=== PATIENT | female | born 1975 ===

== ENCOUNTER 2018-06-20 11:19 | Emergency (ER) | payer OTHER ==
[2018-06-20 11:39] VITALS: RESP 18; TEMP 98.9
[2018-06-20] MEDS ORDERED: Bacitracin 500 Units/gm Oint Foilpak UD TOP STA (11:52)
[2018-06-20] MEDS ORDERED: Oxycodone/Acetaminophen 5/325 mg Tab PO STA (11:52)
[2018-06-20] MEDS ORDERED: Tetanus/Diphtheria Toxoids 0.5 ml Syringe IM ONE ×2 (11:53→12:35)
[2018-06-20] MEDS ORDERED: Rabies Immune Globulin 1500 Unit/5ml Vial IM ONE (11:53)
[2018-06-20] MEDS ORDERED: Amoxicillin-Clav 875-125 mg Tab PO STA (11:59)
[2018-06-20] MEDS ORDERED: Amoxicillin-Clav 875-125 mg Tab PO ONE (12:34)
[2018-06-20] MEDS ORDERED: Bacitracin 500 Units/gm Oint Foilpak UD ONE ×2 (12:34→14:39)
[2018-06-20] MEDS ORDERED: Oxycodone/Acetaminophen 5/325 mg Tab ONE (12:34)
[2018-06-20] MEDS ORDERED: Lidocaine 2% MPF (5 ml) Inj ONE (14:01)
--- NOTE | 2018-06-20 14:23 | C.PDOC ---
History Of Present Illness 43 year old female presents to the emergency department status-post being attacked by a cat. Patient states that she was walking on the street when she saw a stray cat and began to offer it some bread. When she leaned towards the cat, she was viciously mauled by the cat. She reports sticking her arms up to protect her face and head but sustained numerous lacerations on her face, arms, and superior skull. She states she is unsure if she was bitten. Chief Complaint (Nursing): Bite History Per: Patient History/Exam Limitations: no limitations Onset/Duration Of Symptoms: Hrs Current Symptoms Are (Timing): Still Present Location Of Injury: Right: Arm, Left: Arm, Anterior: Face, Head Quality Of Symptoms: Painful, Draining, Other (laceration) - Animal Bite Description Of The Attack: Approached Animal Description Of The Animal: Stray Reports Animal's Immunization Status: Unknown Past Medical History Reviewed: Historical Data, Nursing Documentation, Vital Signs Vital Signs: Last Vital Signs Temp 98.9 F 06/20/18 14:37 Pulse 60 06/20/18 14:37 Resp 18 06/20/18 14:37 BP 143/79 06/20/18 14:37 Pulse Ox 98 06/20/18 20:17 - Medical History PMH: No Chronic Diseases Surgical History: Cholecystectomy Family History: States: No Known Family Hx - Social History Hx Alcohol Use: No Hx Substance Use: No Review Of Systems Except As Marked, All Systems Reviewed And Found Negative. Skin: Positive for: Other (multiple lacerations) Neurological: Negative for: Weakness, Numbness Physical Exam - Physical Exam Appears: Non-toxic, No Acute Distress Skin: Warm, Dry, Other (numerous scratches, superficial lacerations and pancture wounds on patient's forearms and lower legs b/l) Head: Laceration (2.5cm flap laceration present to the left evangelical, three lacerations present on superior skull) Eye(s): bilateral: Normal Inspection, PERRL, EOMI Neck: Normal, Supple Chest: Symmetrical, No Tenderness Cardiovascular: Rhythm Regular, No Murmur Respiratory: No Rales, No Rhonchi, No Wheezing Extremity: Normal ROM, Other (laceration to the left foot) Neurological/Psych: Oriented x3, Normal Speech, Normal Cognition ED Course And Treatment O2 Sat by Pulse Oximetry: 98 Progress Note: Td IM, Augmentin po, Percocet po. Laceration - Laceration Repair Left Bahai Wound Length (In cm): 2.5cm Description Of Wound: Linear (flap) Wound Cleansed With: Betadine, Sterile Saline Anesthesia: Lidocaine 1% Wound Examination: Irrigated With Saline, No FB With Wound Exploration Wound Closure: Suture (3 ) Suture Technique And Material Used: Interrupted, Nylon (5-0) Wound Complexity: Simple Head Wound Length (In cm): 4cm Description Of Wound: Linear Anesthesia: Lidocaine 1% Wound Examination: Irrigated With Saline Wound Closure: Five Points (4) Wound Complexity: Simple Head 2 Wound Length (In cm): 1cm Description Of Wound: Linear Anesthesia: Lidocaine 1% Wound Closure: Five Points (1) Wound Complexity: Simple Head 3 Wound Length (In cm): 1cm Description Of Wound: Linear Anesthesia: Lidocaine 1% Wound Closure: Five Points (1) Wound Complexity: Simple Disposition - Disposition Disposition: HOME/ ROUTINE Disposition Time: 14:18 Condition: STABLE Additional Instructions: Follow up with your PMD/clinic within 2-3 days. Return to ED in 1 week for suture / staple removal. Return to ED immediately if you develop any signs of wound infection. Come back to ED for Rabies vaccination on 06/23/18, 06/27/18 and 07/04/18. Prescriptions: Amoxicillin/Clavulanate [Augmentin 875 MG-125 MG] 1 tab PO BID #14 tab Mupirocin 2% Ointment [Bactroban Ointment] 1 appl TP BID #1 tube Ibuprofen [Motrin Tab] 600 mg PO Q8 #30 tab Instructions: Animal Bites (DC), Wound Care (DC), Laceration Repair With Yuki (DC), Laceration Repair With Stitches (DC) Forms: [employer] (Occitan) Print Language: MALAY - Clinical Impression Clinical Impression: Animal bite wound, Abrasions of multiple sites, Scratched by cat, Lacerations of multiple sites without complication - PA / EDUCATION CONSULTANT / Resident Statement MD/DO has reviewed & agrees with the documentation as recorded. - Scribe Statement The provider has reviewed the documentation as recorded by the Scribe (Sandeep Carter) All medical record entries made by the Scribe were at my direction and personally dictated by me. I have reviewed the chart and agree that the record accurately reflects my personal performance of the history, physical exam, medical decision making, and the department course for this patient. I have also personally directed, reviewed, and agree with the discharge instructions and disposition.
[2018-06-20 14:39] VITALS: BP 143/79; PULSE 60
[2018-06-20 19:54] VITALS: O2SAT 98
== END 2018-06-20 14:49 | disposition home or self-care (01) ==
LOC: C.ER 11:19
DX: S01.81XA Laceration without foreign body of other part of head, initial encounter (principal); S91.312A Laceration without foreign body, left foot, initial encounter; S51.832A Puncture wound without foreign body of left forearm, initial encounter; S51.831A Puncture wound without foreign body of right forearm, initial encounter; S81.832A Puncture wound without foreign body, left lower leg, initial encounter; S81.831A Puncture wound without foreign body, right lower leg, initial encounter; W55.01XA Bitten by cat, initial encounter

== ENCOUNTER 2018-06-23 09:06 | Emergency (ER) | payer OTHER ==
[2018-06-23 09:11] VITALS: BP 130/81; PULSE 58; RESP 16; TEMP 98.5; O2SAT 98
--- NOTE | 2018-06-23 09:25 | C.PDOC ---
History Of Present Illness 43 y/o female presents to ED for 2nd rabies vaccine and for wound check. Patient was previously seen at ED after being attacked by cat, sutures placed to right side of face and shelli to scalp area. Patient denies drainage, fever new injury or any other complaints at this time. Time Seen by Provider: 06/23/18 09:16 Chief Complaint (Nursing): Medical Clearance History Per: Patient History/Exam Limitations: no limitations Onset/Duration Of Symptoms: Days Current Symptoms Are (Timing): Still Present Past Medical History Reviewed: Historical Data, Nursing Documentation, Vital Signs Vital Signs: Last Vital Signs Temp 98.5 F 06/23/18 09:09 Pulse 58 L 06/23/18 09:09 Resp 16 06/23/18 09:09 BP 130/81 06/23/18 09:09 Pulse Ox 98 06/23/18 09:27 - Medical History PMH: No Chronic Diseases Surgical History: Cholecystectomy Family History: States: No Known Family Hx - Social History Hx Alcohol Use: No Hx Substance Use: No - Immunization History Hx Tetanus Toxoid Vaccination: Yes Hx Influenza Vaccination: No Hx Pneumococcal Vaccination: No Review Of Systems Except As Marked, All Systems Reviewed And Found Negative. Skin: Positive for: Other (wound check) Physical Exam - Physical Exam Appears: Non-toxic, No Acute Distress Skin: Warm, Dry, No Rash Head: No Tenderness, No Swelling, Laceration (healing to right side of face and scalp area) Eye(s): bilateral: PERRL, EOMI Oral Mucosa: Moist Cardiovascular: Rhythm Regular Respiratory: Normal Breath Sounds, No Rales, No Rhonchi, No Wheezing Gastrointestinal/Abdominal: Soft, No Tenderness, No Guarding, No Rebound Extremity: Normal ROM, Capillary Refill (<2 seconds), No Deformity, Other ( multiple abrasions to extremities no signs of infection ) Neurological/Psych: Oriented x3, Normal Speech, Normal Motor, Normal Sensation ED Course And Treatment O2 Sat by Pulse Oximetry: 98 (RA) Pulse Ox Interpretation: Normal Medical Decision Making Medical Decision Making: Assessment: Wound check and 2nd rabies vaccine Disposition Counseled Patient/Family Regarding: Diagnosis, Need For Followup - Disposition Disposition: HOME/ ROUTINE Disposition Time: 09:22 Condition: STABLE Additional Instructions: suture removal from face in 2 days scalp staple removal in 7 days next rabies vaccine on 06/27/18 return to ER sooner if symptoms worsens or progress Instructions: Rabies Vaccine Forms: Gen Discharge Inst Indian, [facility] (Indian) Print Language: [place] HEL[place] - Clinical Impression Clinical Impression: Rabies, Visit for wound check - Scribe Statement The provider has reviewed the documentation as recorded by the Christianeibmaría elena Boudreaux All medical record entries made by the Christaineibe were at my direction and personally dictated by me. I have reviewed the chart and agree that the record accurately reflects my personal performance of the history, physical exam, medical decision making, and the department course for this patient. I have also personally directed, reviewed, and agree with the discharge instructions and disposition.
== END 2018-06-23 09:46 | disposition home or self-care (01) ==
LOC: C.ER 09:06
DX: Z23 Encounter for immunization (principal)

== ENCOUNTER 2018-06-25 12:13 | Emergency (ER) | payer OTHER ==
[2018-06-25 12:40] VITALS: BP 134/82; PULSE 65; RESP 18; TEMP 98.3; O2SAT 100
--- NOTE | 2018-06-25 13:07 | C.PDOC ---
History Of Present Illness FOR FACIAL SUTURE REMOVAL. PS HEALING WELL. EXAM SKIN [address] L FOREHEAD, NO INFXN PROC 3 SUTURES REMOVED W 11 BLADE WO DIFF. PT TOLERATED WELL Time Seen by Provider: 06/25/18 12:40 Chief Complaint (Nursing): Suture/Staple Removal History Per: Patient History/Exam Limitations: no limitations Past Medical History Reviewed: Historical Data, Nursing Documentation, Vital Signs Vital Signs: Last Vital Signs Temp 98.3 F 06/25/18 12:37 Pulse 65 06/25/18 12:37 Resp 18 06/25/18 12:37 BP 134/82 06/25/18 12:37 Pulse Ox 100 06/25/18 13:07 - Medical History PMH: No Chronic Diseases Surgical History: Cholecystectomy Family History: States: No Known Family Hx - Social History Hx Alcohol Use: No Hx Substance Use: No - Immunization History Hx Tetanus Toxoid Vaccination: Yes Hx Influenza Vaccination: No Hx Pneumococcal Vaccination: No Review Of Systems Except As Marked, All Systems Reviewed And Found Negative. Physical Exam - Physical Exam Appears: Non-toxic, No Acute Distress Skin: Normal Color, Warm, Dry, Other (left forehead: [address], no infection) Head: Atraumatic, Normacephalic Eye(s): bilateral: Normal Inspection Respiratory: Other (NARD) Neurological/Psych: Oriented x3, Normal Speech ED Course And Treatment O2 Sat by Pulse Oximetry: 100 (RA) Pulse Ox Interpretation: Normal Medical Decision Making Medical Decision Making: PROC 3 SUTURES REMOVED W 11 BLADE WO DIFF. PT TOLERATED WELL Disposition Counseled Patient/Family Regarding: Diagnosis, Need For Followup - Disposition Referrals: [facility] [Outside] [facility] [Outside] Disposition: HOME/ ROUTINE Disposition Time: 13:07 Condition: IMPROVED Additional Instructions: RETURN DIRECTED Instructions: Stitches Removal Forms: [facility] [facility] (Equatorial Guinean) Print Language: NEPALESE - Clinical Impression Clinical Impression: Removal of suture - Scribe Statement The provider has reviewed the documentation as recorded by the Ariel Caban Provider Attestation: All medical record entries made by the Christianeibe were at my direction and personally dictated by me. I have reviewed the chart and agree that the record accurately reflects my personal performance of the history, physical exam, medical decision making, and the department course for this patient. I have also personally directed, reviewed, and agree with the discharge instructions and disposition.
== END 2018-06-25 13:15 | disposition home or self-care (01) ==
LOC: C.ER 12:13
DX: Z48.02 Encounter for removal of sutures (principal)

== ENCOUNTER 2018-06-27 08:50 | Emergency (ER) | payer OTHER ==
[2018-06-27 09:01] VITALS: BMI 31.2
[2018-06-27 09:02] VITALS: BP 131/76; PULSE 62; RESP 17; TEMP 98.7; O2SAT 99
--- NOTE | 2018-06-27 09:12 | C.PDOC ---
History Of Present Illness 43 year old female presents to the emergency department for her 3rd rabies shot in the series. Patient was attacked by a stray cat on 06/20/18, and was given rabies vaccines on that same day and on 06/23/18. She states she is currently feeling better, denies pain, fever, discharge, etc. Time Seen by Provider: 06/27/18 09:02 Chief Complaint (Nursing): Rabies Vaccine Series History Per: Patient History/Exam Limitations: no limitations Onset/Duration Of Symptoms: Days Current Symptoms Are (Timing): Better Past Medical History Reviewed: Historical Data, Nursing Documentation, Vital Signs Vital Signs: Last Vital Signs Temp 98.7 F 06/27/18 09:03 Pulse 62 06/27/18 09:03 Resp 17 06/27/18 09:03 BP 131/76 06/27/18 09:03 Pulse Ox 99 06/27/18 10:34 - Medical History PMH: No Chronic Diseases Surgical History: Cholecystectomy Family History: States: No Known Family Hx - Social History Hx Alcohol Use: No Hx Substance Use: No - Immunization History Hx Tetanus Toxoid Vaccination: Yes (06/2018) Hx Influenza Vaccination: No Hx Pneumococcal Vaccination: No Review Of Systems Constitutional: Negative for: Fever Cardiovascular: Negative for: Chest Pain Respiratory: Negative for: Shortness of Breath Gastrointestinal: Negative for: Nausea, Vomiting Skin: Negative for: Rash Neurological: Negative for: Weakness, Numbness Physical Exam - Physical Exam Appears: Well, Non-toxic, No Acute Distress Skin: Warm, Dry, Other (Well healing abrasions on bilateral arms and on left upper cheek) Head: Normacephalic, Other (Superior aspect of scalp has intact shelli) Eye(s): bilateral: Normal Inspection Oral Mucosa: Moist Neck: Supple Cardiovascular: Rhythm Regular Respiratory: Normal Breath Sounds, No Rales, No Rhonchi, No Wheezing Neurological/Psych: Oriented x3 ED Course And Treatment O2 Sat by Pulse Oximetry: 99 (RA) Pulse Ox Interpretation: Normal Progress Note: Patient given third rabies shot in the series. Patient is is resting comfortably, and is in no acute distress. She was instructed to return to the ER on 07/04/18 for the last rabies shot, or to return sooner if she has any concerning symptoms. Disposition Counseled Patient/Family Regarding: Diagnosis, Need For Followup - Disposition Referrals: [facility] [Outside] Disposition: HOME/ ROUTINE Disposition Time: 09:30 Condition: STABLE Instructions: Rabies Vaccine Forms: [facility] (Gambian), General Discharge Instructions Print Language: BELARUSIAN - Clinical Impression Clinical Impression: Rabies vaccination - Scribe Statement The provider has reviewed the documentation as recorded by the Christianeibe Freda Bobby Provider Attestation: All medical record entries made by the Christianeibe were at my direction and personally dictated by me. I have reviewed the chart and agree that the record accurately reflects my personal performance of the history, physical exam, medical decision making, and the department course for this patient. I have also personally directed, reviewed, and agree with the discharge instructions and disposition.
== END 2018-06-27 09:38 | disposition home or self-care (01) ==
LOC: C.ER 08:50
DX: Z23 Encounter for immunization (principal)

== ENCOUNTER 2018-07-01 14:32 | Emergency (ER) | payer OTHER ==
[2018-07-01 14:33] VITALS: BMI 31.2
[2018-07-01 14:36] VITALS: BP 143/78; PULSE 66; RESP 18; TEMP 99; O2SAT 100
--- NOTE | 2018-07-01 16:23 | C.PDOC ---
History Of Present Illness 43 y/o female presents to the ED for staple removal. The (6) sutures were placed 1 week ago on scalp. The patient offers no medical complaints at this time. She states the healing process of the sutures went well. Time Seen by Provider: 07/01/18 14:37 Chief Complaint (Nursing): Suture/Staple Removal History Per: Patient History/Exam Limitations: no limitations Location Of Injury: Right: Head, Left: Head Recent travel outside of the [place]: No Past Medical History Reviewed: Historical Data, Nursing Documentation, Vital Signs Vital Signs: Last Vital Signs Temp 99 F 07/01/18 14:34 Pulse 66 07/01/18 14:34 Resp 18 07/01/18 14:34 BP 143/78 07/01/18 14:34 Pulse Ox 100 07/01/18 16:24 - Medical History PMH: No Chronic Diseases Surgical History: Cholecystectomy Family History: States: Unknown Family Hx - Social History Hx Alcohol Use: No Hx Substance Use: No - Immunization History Hx Tetanus Toxoid Vaccination: Yes (06/2018) Hx Influenza Vaccination: No Hx Pneumococcal Vaccination: No Review Of Systems Except As Marked, All Systems Reviewed And Found Negative. Constitutional: Negative for: Fever Musculoskeletal: Negative for: Other (head pain) Physical Exam - Physical Exam Appears: Well, Non-toxic, No Acute Distress Skin: Normal Color, Warm, Dry Head: Atraumatic, Normacephalic Eye(s): bilateral: PERRL, EOMI Ear(s): Bilateral: Normal Oral Mucosa: Moist Neck: Normal, Supple Chest: Symmetrical Cardiovascular: Rhythm Regular, No Murmur Respiratory: Normal Breath Sounds, No Rales, No Rhonchi, No Wheezing Neurological/Psych: Oriented x3, Normal Speech ED Course And Treatment O2 Sat by Pulse Oximetry: 100 (RA) Pulse Ox Interpretation: Normal Medical Decision Making Medical Decision Makin shelli were removed. [place] appeared dry and intact. Disposition - [facility] - Disposition: HOME/ ROUTINE Disposition Time: 14:45 Condition: GOOD Additional Instructions: REGAN GARRISON, thank you for letting us take care of you today. Your provider was Bernardo Gomez DO and you were treated for WOUND CHECK. The emergency medical care you received today was directed at your acute symptoms. If you were prescribed any medication, please fill it and take as directed. It may take several days for your symptoms to resolve. Return to the Emergency Department if your symptoms worsen, do not improve, or if you have any other problems. Please contact your doctor or call one of the physicians/clinics you have been referred to that are listed on the Patient Visit Information form that is included in your discharge packet. Bring any paperwork you were given at discharge with you along with any medications you are taking to your follow up visit. Our treatment cannot replace ongoing medical care by a primary care provider outside of the emergency department. Thank you for allowing the [facility] team to be part of your care today. Keep area clean and dry until healed. You may wash area with soap and water. Return to the emergency room if you have any concerns. REGAN GARRISON, kecia por dejarnos atenderlo malina. Anton proveedor fue Bernardo Passafaro DO y usted recibi tratamiento para WOUND CHECK. La atencin mdica de emergencia que recibi hoy estaba dirigida a diane sntomas agudos. Si le prescribieron algn medicamento, llnelo y tome segn las indicaciones. Diane s ntomas pueden tardar varios dejesus en resolverse. Regrese al Departamento de Emergencia si diane sntomas empeoran, no mejoran o si tiene algn otro problema. Comunquese con anton mdico o llame a darnell de los mdicos / clnicas a los que ferreira sido referido que figura en el formulario de Informacin de visita del paciente que se incluye en anton paquete de lalo. Traiga todos los documentos que recibi al momento del lalo junto con los medicamentos que est tomando en anton visita de seguimiento. Nuestro tratamiento no puede reemplazar la atencin mdica en curso por un proveedor de atencin primaria fuera del departamento de emergencia. Kecia por permitir que el equipo de [facility] sea parte de anton cuidado hoy. Mantenga el galo limpia y seca hasta que se cure. Puede ray el galo con agua y jabn. Regrese a la omar de emergencias si tiene alguna inquietud. Instructions: Staple Removal Forms: Gen Discharge Inst Uzbek, [facility] (Uzbek) - Clinical Impression Clinical Impression: Removal of suture - PA / RADIOGRAPHER CARDIAC CATHETERIZATION / Resident Statement MD/DO has reviewed & agrees with the documentation as recorded. - Scribe Statement The provider has reviewed the documentation as recorded by the Scribe (Ellie Peters) Provider Attestation: All medical record entries made by the Scribe were at my direction and personally dictated by me. I have reviewed the chart and agree that the record accurately reflects my personal performance of the history, physical exam, medical decision making, and the department course for this patient. I have also personally directed, reviewed, and agree with the discharge instructions and disposition.
== END 2018-07-01 15:11 | disposition home or self-care (01) ==
LOC: C.ER 14:32
DX: Z48.02 Encounter for removal of sutures (principal)

== ENCOUNTER 2018-07-04 08:46 | Emergency (ER) | payer OTHER ==
[2018-07-04 08:47] VITALS: BMI 31.2
[2018-07-04 08:54] VITALS: BP 126/76; PULSE 61; RESP 18; TEMP 99.2; O2SAT 98
--- NOTE | 2018-07-04 09:04 | C.PDOC ---
History Of Present Illness 43 y/o female returns to ED for final rabies vaccination. Denies any new complaints at this time. Time Seen by Provider: 07/04/18 09:03 Chief Complaint (Nursing): Rabies Vaccine Series History Per: Patient History/Exam Limitations: no limitations Past Medical History Reviewed: Historical Data, Nursing Documentation, Vital Signs Vital Signs: Last Vital Signs Temp 99.2 F 07/04/18 08:52 Pulse 61 07/04/18 08:52 Resp 18 07/04/18 08:52 BP 126/76 07/04/18 08:52 Pulse Ox 98 07/04/18 09:53 Surgical History: Cholecystectomy Family History: States: Unknown Family Hx - Social History Hx Alcohol Use: No Hx Substance Use: No - Immunization History Hx Tetanus Toxoid Vaccination: Yes (06/2018) Hx Influenza Vaccination: No Hx Pneumococcal Vaccination: No Review Of Systems Except As Marked, All Systems Reviewed And Found Negative. Constitutional: Negative for: Fever, Chills Cardiovascular: Negative for: Chest Pain Respiratory: Negative for: Shortness of Breath Physical Exam - Physical Exam Appears: Non-toxic, No Acute Distress Skin: Normal Color, Warm, Dry Head: Atraumatic, Normacephalic Eye(s): bilateral: Normal Inspection Oral Mucosa: Moist Neck: Normal ROM, Supple Extremity: Normal ROM, No Deformity Neurological/Psych: Oriented x3, Normal Speech ED Course And Treatment O2 Sat by Pulse Oximetry: 98 (RA) Pulse Ox Interpretation: Normal Medical Decision Making Medical Decision Making: Plan: Rabies vaccine Disposition Counseled Patient/Family Regarding: Diagnosis, Need For Followup - Disposition [facility]] [facility] [Outside] Disposition: HOME/ ROUTINE Disposition Time: 09:04 Condition: IMPROVED Instructions: Rabies Vaccine Forms: [employer] (Niuean) - Clinical Impression Clinical Impression: Rabies vaccination - Scribe Statement The provider has reviewed the documentation as recorded by the Scribe KP All medical record entries made by the Scribe were at my direction and personally dictated by me. I have reviewed the chart and agree that the record accurately reflects my personal performance of the history, physical exam, medical decision making, and the department course for this patient. I have also personally directed, reviewed, and agree with the discharge instructions and disposition.
== END 2018-07-04 09:32 | disposition home or self-care (01) ==
LOC: C.ER 08:46
DX: Z23 Encounter for immunization (principal)